=== PATIENT | female | born 1935 | race Caucasian/White ===

== ENCOUNTER 2017-03-13 08:21 | Day surgery (SDC) | payer OTHER, BC ==
[~2017-03-13] VITALS: Ht 170.2 cm; Wt 59.8 kg
[~2017-03-13 08:21] MED LIST: AMITIZA8 MICROGRA PO; ANORO ELLIPTA1 EACH IH; CALCITRATE + D1 EACH PO; CENTRUM SILVER1 EAC4 PO; CO Q-10200 MG PO; IMITREX50 MG PO; MILK THISTLE175 MG PO; MOBIC7.5 MG PO; PRILOSEC20 MG PO; SELENIUM100 MICROG PO; SUPER B COMPLE1 EAC2 PO; TIMOPTIC-0100 DROP/1 BOTH EYES; TOPAMAX25 MG PO; YUVAFEM10 MCG VG
[2017-03-13 08:50] VITALS: BP 122/60
[2017-03-13 12:20] VITALS: BP 100/54
[2017-03-13 13:03] VITALS: BP 116/54
== END 2017-03-13 13:08 | disposition home or self-care (01) ==
LOC: SDC
PROC: 0UDB8ZX Extraction of Endometrium, Via Natural or Artificial Opening Endoscopic, Diagnostic (ICD-10-PCS; principal; 2017-03-13)
DX: N84.0 Polyp of corpus uteri (principal); Z87.891 Personal history of nicotine dependence; J44.9 Chronic obstructive pulmonary disease, unspecified; I71.4 Abdominal aortic aneurysm, without rupture; K22.4 Dyskinesia of esophagus; K21.9 Gastro-esophageal reflux disease without esophagitis; E78.5 Hyperlipidemia, unspecified; Z85.820 Personal history of malignant melanoma of skin; G43.909 Migraine, unspecified, not intractable, without status migrainosus; M85.80 Other specified disorders of bone density and structure, unspecified site; I73.00 Raynaud's syndrome without gangrene; E55.9 Vitamin D deficiency, unspecified
CPT/HCPCS: 88305; J0690; J1885; J2405; J3010